=== PATIENT | female | born 1980 | race Caucasian/White ===

== ENCOUNTER 2023-03-24 03:00 | Emergency (ER) | payer BC, OTHER ==
[~2023-03-24] VITALS: Ht 160 cm; Wt 58.1 kg
[~2023-03-24 03:00] MED LIST: BEN50 PO; IMI50 PO
--- NOTE | 2023-03-24 03:45 | NUR ---
Dr. Marin examining patient.
[2023-03-24] MEDS ORDERED: oxyCODONE/APAP 5/325 MG 1 TAB TAB PO ONE (03:50)
[2023-03-24 03:51] VITALS: BP 133/100
[2023-03-24] MEDS ORDERED: LIDOCAINE 5% 1 EA PATCH TP SCH (04:05)
--- NOTE | 2023-03-24 04:09 | NUR ---
Patient taken to bed 9.
--- NOTE | 2023-03-24 04:13 | NUR ---
PT TAKEN TO RADIOLOGY
[2023-03-24] MEDS ORDERED: MORPHINE SULFATE 4 MG/ML SYR IM ONE (07:35)
[2023-03-24] MEDS ORDERED: ACET-8905 PO (07:38)
[2023-03-24] MEDS ORDERED: IBUP-2213 PO (07:38)
[2023-03-24 08:23] VITALS: BP 128/78
--- NOTE | 2023-03-24 08:40 | NUR ---
Patient discharged with v/s stable. Written and verbal after care instructions given and explained. Patient verbalized understanding. Wheel Chair Assisted with to car. All questions addressed prior to discharge. Advised to follow up with PMD.
== END 2023-03-24 08:23 | disposition home or self-care (01) ==
LOC: MED 03:00
DX: S09.90XA Unspecified injury of head, initial encounter (principal); M54.50 Low back pain, unspecified; M54.2 Cervicalgia; R42 Dizziness and giddiness; J45.909 Unspecified asthma, uncomplicated; E07.9 Disorder of thyroid, unspecified; Z79.899 Other long term (current) drug therapy; Z88.5 Allergy status to narcotic agent; Z87.442 Personal history of urinary calculi; V89.2XXA Person injured in unspecified motor-vehicle accident, traffic, initial encounter; Y93.89 Activity, other specified; Y92.89 Other specified places as the place of occurrence of the external cause; Y99.8 Other external cause status
CPT/HCPCS: 70450; 72125; 72131; 72170; 96372; 99285; J2270